=== PATIENT | female | born 1985 | race Caucasian/White ===

== ENCOUNTER 2023-01-11 03:17 | Emergency (ER) | payer BC ==
[2023-01-11 04:20] LABS: Bilirubin Neg (Negative); Blood, Urine Negative (Negative); Clarity Clear (Clear); Glucose, Urine (Dipstick) Normal (Negative); Ketone, Urine Negative (Negative); Leukocyte 25 (Negative); Nitrite Negative (Negative); Protein, Urine (Dipstick) Negative (Neg-Trace); Urobilinogen Normal mg/dL (Less than 2); pH, Urine 6.5 (5.0-9.0)
[2023-01-11 04:29] LABS: Bacteria/HPF None Seen HPF (None Seen); RBC/HPF None Seen HPF (0-3); Squamous Epithelial 0-3 HPF (0-3); WBC/HPF 0-3 HPF (0-3)
[2023-01-11 04:35] LABS: #Eosinphils 0.3 10x3/uL (0.0-0.5); #Monocytes 0.5 10x3/uL (0.0-1.1); %Basophils 0.4 % (0.0-2.0); %Eosinophils 3.5 % (0.0-6.0); %Lymphocytes 25.1 % (18.0-47.0); %Monocytes 5.3 % (0.0-10.0); %Neutrophils 65.3 % (40.0-75.0); Hemoglobin 12.3 g/dL (12.0-15.5); Mean Corpuscular HGB CONC 31.8 g/dL (32.0-36.0); Mean Corpuscular Hemoglobin 27.3 pg (27.0-33.0); Mean Corpuscular Volume 85.8 fl (81.6-98.3); Mean Platelet Volume 11.7 fl (7.4-10.4); Platelet Count 257 10x3/uL (150-450); RBC Distribution Width 15.2 % (11.5-14.5); Red Blood Cell (RBC) Count 4.51 10x6/uL (3.90-5.03); White Blood Cell (WBC) Count 9.2 10x3/uL (3.5-10.5)
[2023-01-11 04:39] LABS: ALT (SGPT) 22 U/L (8-55); AST (SGOT) 15 U/L (5-34); Alkaline Phosphatase 94 U/L (40-110); Anion Gap 15 mmol/L (10-20); BUN (Urea Nitrogen) 7 mg/dL (7.0-18.7); Bilirubin, Total 0.4 mg/dL (0.2-1.2); Calc. Creatinine Clearance 0 mL/min (70-130); Calcium 8.6 mg/dL (7.8-10.44); Carbon Dioxide 23 mmol/L (22-29); Chloride 101 mmol/L (98-107); Estimated GFR 102; Globulin 3.4 g/dL (2.4-3.5); Glucose 141 mg/dL (70-105); Lipase 36 U/L (8-78); Potassium 3.8 mmol/L (3.5-5.1); Protein, Total 7.4 g/dL (6.0-8.3); Sodium 135 mmol/L (136-145)
[2023-01-11] MEDS ORDERED: HYDROcodone/Acetaminophen 5/325 mg Tablet ONE (05:34)
[2023-01-11 05:37] LABS: Platelet Clumps SLIGHT
[2023-01-11 05:38] LABS: Platelet Morphology Comment Appears Adequate
== END 2023-01-11 07:25 | disposition home or self-care (01) ==
LOC: CSHERS 03:17
DX: O99.891 Other specified diseases and conditions complicating pregnancy (principal); R10.9 Unspecified abdominal pain; Z3A.01 Less than 8 weeks gestation of pregnancy
CPT/HCPCS: 76770; 76856; 80053; 81003; 81015; 83690; 84702; 85025

== ENCOUNTER 2023-06-01 14:19 | Day surgery (SDC) | payer BC ==
[2023-06-01] MEDS ORDERED: hydrALAZINE 20 MG/ML VIAL SLOW IVP PRN (15:47)
[2023-06-01] MEDS ORDERED: Acetaminophen 500 MG TAB PO SCH (16:00)
[2023-06-01 16:33] LABS: #Eosinphils 0.1 10x3/uL (0.0-0.5); #Monocytes 0.5 10x3/uL (0.0-1.1); #Neutrophils 7.3 10x3/uL (1.5-8.4); %Basophils 0.2 % (0.0-2.0); %Eosinophils 1.4 % (0.0-6.0); %Lymphocytes 14.4 % (18.0-47.0); %Monocytes 5.4 % (0.0-10.0); %Neutrophils 78.3 % (40.0-75.0); Hematocrit 31.5 % (34.9-44.5); Mean Corpuscular HGB CONC 31.7 g/dL (32.0-36.0); Mean Corpuscular Hemoglobin 27.4 pg (27.0-33.0); Mean Corpuscular Volume 86.3 fl (81.6-98.3); Platelet Count 262 10x3/uL (150-450); RBC Distribution Width 14.4 % (11.5-14.5); Red Blood Cell (RBC) Count 3.65 10x6/uL (3.90-5.03); White Blood Cell (WBC) Count 9.3 10x3/uL (3.5-10.5)
[2023-06-01 16:34] LABS: ALT (SGPT) 11 U/L (8-55); AST (SGOT) 10 U/L (5-34); Albumin 3.3 g/dL (3.5-5.0); Alkaline Phosphatase 95 U/L (40-110); Anion Gap 13 mmol/L (10-20); BUN (Urea Nitrogen) 6 mg/dL (7.0-18.7); Bilirubin, Total 0.2 mg/dL (0.2-1.2); Calc. Creatinine Clearance 0 mL/min (70-130); Calcium 8.6 mg/dL (7.8-10.44); Carbon Dioxide 22 mmol/L (22-29); Chloride 106 mmol/L (98-107); Estimated GFR 116; Globulin 3.3 g/dL (2.4-3.5); Glucose 98 mg/dL (70-105); Potassium 3.7 mmol/L (3.5-5.1); Protein, Total 6.6 g/dL (6.0-8.3); Sodium 137 mmol/L (136-145)
== END 2023-06-01 18:10 | disposition home or self-care (01) ==
LOC: CSHLD/OP 14:19
PROVIDERS: ATTEND Obstetrics & Gynecology
DX: O13.2 Gestational [pregnancy-induced] hypertension without significant proteinuria, second trimester (principal); O99.891 Other specified diseases and conditions complicating pregnancy; R51.9 Headache, unspecified; O99.212 Obesity complicating pregnancy, second trimester; E66.01 Morbid (severe) obesity due to excess calories; O99.282 Endocrine, nutritional and metabolic diseases complicating pregnancy, second trimester; E07.9 Disorder of thyroid, unspecified; O34.42 Maternal care for other abnormalities of cervix, second trimester; N87.9 Dysplasia of cervix uteri, unspecified; O99.112 Other diseases of the blood and blood-forming organs and certain disorders involving the immune mechanism complicating pregnancy, second trimester; O34.211 Maternal care for low transverse scar from previous cesarean delivery; D68.51 Activated protein C resistance; Z90.89 Acquired absence of other organs; Z88.5 Allergy status to narcotic agent; Z91.048 Other nonmedicinal substance allergy status; Z91.018 Allergy to other foods; Z3A.27 27 weeks gestation of pregnancy
CPT/HCPCS: 36415; 76815; 80053; 82570; 84156; 85025

== ENCOUNTER 2023-07-22 16:47 | Inpatient (IN) | payer BC ==
[2023-07-22 18:33] LABS: #Eosinphils 0.1 10x3/uL (0.0-0.5); #Monocytes 0.4 10x3/uL (0.0-1.1); #Neutrophils 7.2 10x3/uL (1.5-8.4); %Basophils 0.1 % (0.0-2.0); %Eosinophils 0.8 % (0.0-6.0); %Lymphocytes 14.5 % (18.0-47.0); %Monocytes 4.5 % (0.0-10.0); %Neutrophils 79.9 % (40.0-75.0); Hematocrit 31.5 % (34.9-44.5); Hemoglobin 10.2 g/dL (12.0-15.5); Mean Corpuscular HGB CONC 32.4 g/dL (32.0-36.0); Mean Corpuscular Hemoglobin 26.7 pg (27.0-33.0); Mean Corpuscular Volume 82.5 fl (81.6-98.3); Mean Platelet Volume 11.2 fl (7.4-10.4); Platelet Count 263 10x3/uL (150-450); RBC Distribution Width 14.5 % (11.5-14.5); Red Blood Cell (RBC) Count 3.82 10x6/uL (3.90-5.03); White Blood Cell (WBC) Count 9.1 10x3/uL (3.5-10.5)
[2023-07-22 18:46] LABS: ALT (SGPT) 30 U/L (8-55); AST (SGOT) 21 U/L (5-34); Alkaline Phosphatase 135 U/L (40-110); Anion Gap 15 mmol/L (10-20); BUN (Urea Nitrogen) 9 mg/dL (7.0-18.7); Bilirubin, Total 0.3 mg/dL (0.2-1.2); Calc. Creatinine Clearance 274 mL/min (70-130); Calcium 8.8 mg/dL (7.8-10.44); Carbon Dioxide 20 mmol/L (22-29); Chloride 105 mmol/L (98-107); Estimated GFR 112; Globulin 3.5 g/dL (2.4-3.5); Glucose 161 mg/dL (70-105); Potassium 3.5 mmol/L (3.5-5.1); Protein, Total 6.5 g/dL (6.0-8.3); Sodium 136 mmol/L (136-145)
[2023-07-22] MEDS ORDERED: Lorazepam 2 MG/ML VIAL SLOW IVP PRN (19:10)
[2023-07-22] MEDS ORDERED: hydrALAZINE 20 MG/ML VIAL SLOW IVP PRN ×2 (19:10→19:23)
[2023-07-22] MEDS ORDERED: Promethazine HCl 25 MG/ML VIAL IM PRN (19:10)
[2023-07-22] MEDS ORDERED: Ondansetron PF 4 MG/2 ML Vial IVP PRN (19:10)
[2023-07-22] MEDS ORDERED: Misoprostol 200 MCG TAB PR PRN (19:10)
[2023-07-22] MEDS ORDERED: Bicitra 30 ML UDCUP PO PRN (19:10)
[2023-07-22] MEDS ORDERED: Famotidine/PF 20 mg/2ml Vial SLOW IVP PRN (19:10)
[2023-07-22] MEDS ORDERED: Carboprost 250 MCG/ML AMP IM PRN (19:10)
[2023-07-22] MEDS ORDERED: Zolpidem Tartrate 5 MG TAB PO PRN (19:10)
[2023-07-22] MEDS ORDERED: Diphenoxylate HCl/Atropine Tablet PO PRN ×2 (19:10)
[2023-07-22] MEDS ORDERED: Lactated Ringer's 1,000 ML IV SCH (19:15)
[2023-07-22] MEDS ORDERED: Oxytocin 30 units/NS 500 ML 500 ML IV SCH (19:15)
[2023-07-22] MEDS ORDERED: Labetalol HCl 100 MG/20 ML VIAL SLOW IVP PRN (19:23)
[2023-07-22] MEDS ORDERED: Betamet Acet/Betamet Na Ph 30 MG/5 ML VIAL IM SCH (19:30)
[2023-07-22 19:33] VITALS: BMI 51.6
[2023-07-22 20:43] LABS: HBSAg Index 0.08 S/CO (0-0.99); Hep B Surf Ag - L&D Non-Reactive S/CO (NonReactive)
[2023-07-22 20:45] LABS: HIV (1/2) Antibody/Antigen Non-Reactive (NonReactive); HIV 1/2 INDEX 0.12 S/CO (<1.00)
[2023-07-22 20:46] LABS: Syphilis Antibody Nonreactive (Nonreactive); Syphilis Antibody Index 0.02 S/CO (<1.00 Non-Reactive)
[2023-07-22 20:58] LABS: ALT (SGPT) 32 U/L (8-55); AST (SGOT) 19 U/L (5-34); Albumin 3.2 g/dL (3.5-5.0); Alkaline Phosphatase 140 U/L (40-110); Anion Gap 13 mmol/L (10-20); BUN (Urea Nitrogen) 9 mg/dL (7.0-18.7); Bilirubin, Total 0.3 mg/dL (0.2-1.2); Calc. Creatinine Clearance 293 mL/min (70-130); Calcium 8.8 mg/dL (7.8-10.44); Carbon Dioxide 22 mmol/L (22-29); Chloride 104 mmol/L (98-107); Estimated GFR 115; Globulin 3.4 g/dL (2.4-3.5); Glucose 100 mg/dL (70-105); Potassium 3.5 mmol/L (3.5-5.1); Protein, Total 6.6 g/dL (6.0-8.3); Sodium 135 mmol/L (136-145)
[2023-07-22] MEDS: Labetalol HCl 200 MG TAB PO SCH (21:03)
[2023-07-22 21:08] LABS: #Eosinphils 0.1 10x3/uL (0.0-0.5); #Monocytes 0.5 10x3/uL (0.0-1.1); #Neutrophils 5.7 10x3/uL (1.5-8.4); %Basophils 0.1 % (0.0-2.0); %Lymphocytes 18.2 % (18.0-47.0); %Monocytes 6.1 % (0.0-10.0); %Neutrophils 74.1 % (40.0-75.0); Hematocrit 32.2 % (34.9-44.5); Hemoglobin 10.5 g/dL (12.0-15.5); Mean Corpuscular HGB CONC 32.6 g/dL (32.0-36.0); Mean Corpuscular Volume 82.8 fl (81.6-98.3); Platelet Count 273 10x3/uL (150-450); RBC Distribution Width 14.5 % (11.5-14.5); Red Blood Cell (RBC) Count 3.89 10x6/uL (3.90-5.03); White Blood Cell (WBC) Count 7.7 10x3/uL (3.5-10.5)
[2023-07-23] MEDS ORDERED: CEFAZOLIN 3 GM in Sodium Chloride 0.9% 100 ML IVPB SCH (05:30)
[2023-07-23] MEDS ORDERED: Oxytocin 10 UNITS/ML VIAL ONE (06:54)
[2023-07-23] MEDS ORDERED: PHENYLEPHRINE ONE (06:54)
[2023-07-23] MEDS ORDERED: Dexamethasone 4 mg/ml Vial ONE (06:54)
[2023-07-23] MEDS ORDERED: PHENYLEPHRINE-NS 100 MCG/ML 10 ML SYRINGE ONE (06:54)
[2023-07-23] MEDS ORDERED: Glycopyrrolate 0.2 MG/ML 5 ML SYRINGE ONE (06:54)
[2023-07-23] MEDS ORDERED: Morphine PF 10 MG/10 ML VIAL ONE (06:54)
[2023-07-23] MEDS ORDERED: Ondansetron PF 4 MG/2 ML Vial ONE (06:54)
[2023-07-23] MEDS ORDERED: ePHEDrine Sulfate 50 MG/10 ML VIAL ONE (06:54)
[2023-07-23] MEDS ORDERED: Ketorolac Tromethamine 30 MG/ML VIAL ONE (06:54)
[2023-07-23] MEDS ORDERED: NS ONE (06:54)
[2023-07-23] MEDS ORDERED: Ketorolac Tromethamine 30 MG/ML VIAL IVP PRN (07:26)
[2023-07-23] MEDS ORDERED: Promethazine HCl 25 MG SUPP PR PRN (07:26)
[2023-07-23] MEDS ORDERED: Moisturizing Cream (Eucerin) 113 GM JAR TOP PRN (07:26)
[2023-07-23] MEDS ORDERED: Meperidine HCl/PF 25 MG/ML VIAL SLOW IVP PRN (07:26)
[2023-07-23] MEDS ORDERED: diphenhydrAMINE 50 MG/ML VIAL IVP PRN (07:26)
[2023-07-23] MEDS ORDERED: Promethazine HCl 25 MG/ML VIAL IM PRN (07:26)
[2023-07-23] MEDS ORDERED: Naloxone HCl 0.4 mg/ml Vial IV PRN (07:26)
[2023-07-23] MEDS ORDERED: fentaNYL 50 mcg/mL 1 mL Vial SLOW IVP PRN (07:26)
[2023-07-23] MEDS ORDERED: Ondansetron PF 4 MG/2 ML Vial IVP PRN ×3 (07:26→13:04)
[2023-07-23] MEDS ORDERED: Naloxone HCl 0.4 mg/ml Vial IVP PRN ×2 (07:26)
[2023-07-23] MEDS ORDERED: Communication Order-Pharmacy FS SCH (07:30)
[2023-07-23] MEDS ORDERED: Ketorolac Tromethamine 30 MG/ML VIAL IVP SCH (07:30)
[2023-07-23 08:25] LABS: RapidComm Collect By CBN; pH (Cord, venous) 7.301 (7.250-7.350)
[2023-07-23 08:45] LABS: RapidComm Collect By CBN
[2023-07-23] MEDS ORDERED: NIFEdipine XL 30 MG ER.TAB PO SCH (09:00)
[2023-07-23] MEDS ORDERED: hydrALAZINE 20 MG/ML VIAL SLOW IVP PRN (13:04)
[2023-07-23] MEDS ORDERED: Misoprostol 200 MCG TAB PR PRN (13:04)
[2023-07-23] MEDS ORDERED: diphenhydrAMINE 25 MG CAP PO PRN (13:04)
[2023-07-23] MEDS ORDERED: Acetaminophen 325 MG TAB PO PRN (13:04)
[2023-07-23] MEDS ORDERED: Simethicone Chewable 80 MG TAB PO PRN (13:04)
[2023-07-23] MEDS ORDERED: Methylergonovine 0.2 MG/ML VIAL IM PRN (13:04)
[2023-07-23] MEDS ORDERED: Boostrix 0.5 ML (Tdap) VIAL (>/=7 yrs of age) IM ONE (13:04)
[2023-07-23] MEDS ORDERED: Lanolin Ointment 7 GM TUBE TOP PRN (13:04)
[2023-07-23 13:42] LABS: Uric Acid 4.7 mg/dL (2.6-6.0)
[2023-07-23] MEDS: Ibuprofen 800 MG TAB PO SCH ×2 (14:50→23:38)
[2023-07-23] MEDS: Labetalol HCl 200 MG TAB PO SCH ×3 (14:50→20:18)
[2023-07-23] MEDS: CEFAZOLIN 1 GM in Sodium Chloride 0.9% 100 ML IVPB SCH ×2 (14:50→23:45)
[2023-07-23] MEDS ORDERED: HYDROcodone/Acetaminophen 5/325 mg Tablet PO PRN (19:30)
[2023-07-23] MEDS: HYDROcodone/Acetaminophen 5/325 mg Tablet PO PRN (20:17)
[2023-07-23] MEDS: Docusate 100 MG CAP PO SCH (20:18)
[2023-07-23] MEDS: Ferrous Sulfate 325 MG TAB PO SCH (21:19)
[2023-07-24] MEDS: HYDROcodone/Acetaminophen 5/325 mg Tablet PO PRN ×5 (01:48→20:13)
[2023-07-24] MEDS: Ibuprofen 800 MG TAB PO SCH ×3 (05:42→21:31)
[2023-07-24] MEDS: CEFAZOLIN 1 GM in Sodium Chloride 0.9% 100 ML IVPB SCH (05:43)
[2023-07-24] MEDS: Levothyroxine Sodium 100 MCG TAB PO SCH (05:43)
[2023-07-24 06:31] LABS: Hematocrit 28.6 % (34.9-44.5); Hemoglobin 9.1 g/dL (12.0-15.5); Mean Corpuscular HGB CONC 31.8 g/dL (32.0-36.0); Mean Corpuscular Hemoglobin 27.2 pg (27.0-33.0); Mean Corpuscular Volume 85.6 fl (81.6-98.3); Mean Platelet Volume 11.7 fl (7.4-10.4); Platelet Count 252 10x3/uL (150-450); RBC Distribution Width 14.7 % (11.5-14.5); Red Blood Cell (RBC) Count 3.34 10x6/uL (3.90-5.03); White Blood Cell (WBC) Count 10.6 10x3/uL (3.5-10.5)
[2023-07-24] MEDS: Aspirin 81 mg Enteric Coated Tablet PO SCH (08:33)
[2023-07-24] MEDS: Prenatal Vitamin 1 TAB PO SCH (08:33)
[2023-07-24] MEDS: Ferrous Sulfate 325 MG TAB PO SCH ×2 (08:34→20:12)
[2023-07-24] MEDS: Docusate 100 MG CAP PO SCH ×2 (08:34→20:13)
[2023-07-24] MEDS: Labetalol HCl 200 MG TAB PO SCH ×3 (08:36→21:31)
[2023-07-24] MEDS ORDERED: Liothyronine Sodium 5 MCG TAB PO SCH (09:00)
[2023-07-25] MEDS: HYDROcodone/Acetaminophen 5/325 mg Tablet PO PRN ×4 (01:08→22:10)
[2023-07-25] MEDS: Levothyroxine Sodium 100 MCG TAB PO SCH (06:13)
[2023-07-25] MEDS: Ibuprofen 800 MG TAB PO SCH ×3 (06:14→22:07)
[2023-07-25] MEDS: Liothyronine Sodium 5 MCG TAB PO SCH (06:15)
[2023-07-25] MEDS: Prenatal Vitamin 1 TAB PO SCH (08:56)
[2023-07-25] MEDS: Aspirin 81 mg Enteric Coated Tablet PO SCH (08:56)
[2023-07-25] MEDS: Ferrous Sulfate 325 MG TAB PO SCH ×2 (08:56→22:07)
[2023-07-25] MEDS: Labetalol HCl 200 MG TAB PO SCH ×3 (08:56→22:07)
[2023-07-25] MEDS: Docusate 100 MG CAP PO SCH ×2 (08:58→22:07)
[2023-07-26] MEDS: Ibuprofen 800 MG TAB PO SCH ×3 (06:10→21:58)
[2023-07-26] MEDS: Levothyroxine Sodium 100 MCG TAB PO SCH (06:11)
[2023-07-26] MEDS: Liothyronine Sodium 5 MCG TAB PO SCH (06:12)
[2023-07-26] MEDS: Ferrous Sulfate 325 MG TAB PO SCH ×2 (10:45→21:57)
[2023-07-26] MEDS: Docusate 100 MG CAP PO SCH ×2 (10:45→21:58)
[2023-07-26] MEDS: Labetalol HCl 200 MG TAB PO SCH ×3 (10:45→21:57)
[2023-07-26] MEDS: HYDROcodone/Acetaminophen 5/325 mg Tablet PO PRN (10:54)
[2023-07-26] MEDS: Prenatal Vitamin 1 TAB PO SCH (10:54)
[2023-07-26] MEDS: Aspirin 81 mg Enteric Coated Tablet PO SCH (10:54)
[2023-07-27] MEDS: Liothyronine Sodium 5 MCG TAB PO SCH (05:32)
[2023-07-27] MEDS: Levothyroxine Sodium 100 MCG TAB PO SCH (05:33)
[2023-07-27] MEDS: Ibuprofen 800 MG TAB PO SCH ×2 (05:40→13:07)
[2023-07-27] MEDS: HYDROcodone/Acetaminophen 5/325 mg Tablet PO PRN (05:40)
[2023-07-27 08:16] VITALS: TEMP 98.3
[2023-07-27] MEDS: Prenatal Vitamin 1 TAB PO SCH (08:35)
[2023-07-27] MEDS: Aspirin 81 mg Enteric Coated Tablet PO SCH (08:35)
[2023-07-27] MEDS: Docusate 100 MG CAP PO SCH (08:35)
[2023-07-27] MEDS: Ferrous Sulfate 325 MG TAB PO SCH (08:35)
[2023-07-27] MEDS: Labetalol HCl 200 MG TAB PO SCH ×2 (08:35→17:24)
[2023-07-27 13:11] VITALS: BP 126/66
== END 2023-07-27 19:15 | disposition home or self-care (01) | DRG 787 ==
LOC: CSHLD/OP 16:47 → CSHLD 22:38 → CSHPED 07-23 12:55 → CSHPP 07-26 19:26
PROVIDERS: ADMIT Obstetrics & Gynecology; ATTEND Obstetrics & Gynecology
PROC: 10D00Z1 Extraction of Products of Conception, Low, Open Approach (ICD-10-PCS; principal; 2023-07-23)
PROC: 4A133R1 Monitoring of Arterial Saturation, Peripheral, Percutaneous Approach (ICD-10-PCS; 2023-07-23)
PROC: 3E033XZ Introduction of Vasopressor into Peripheral Vein, Percutaneous Approach (ICD-10-PCS; 2023-07-23)
DX: O11.4 Pre-existing hypertension with pre-eclampsia, complicating childbirth (principal); O99.12 Other diseases of the blood and blood-forming organs and certain disorders involving the immune mechanism complicating childbirth; O34.211 Maternal care for low transverse scar from previous cesarean delivery; O99.892 Other specified diseases and conditions complicating childbirth; R51.9 Headache, unspecified; O24.429 Gestational diabetes mellitus in childbirth, unspecified control; Z3A.34 34 weeks gestation of pregnancy; Z37.0 Single live birth; O99.214 Obesity complicating childbirth; E66.9 Obesity, unspecified; H53.8 Other visual disturbances; O99.824 Streptococcus B carrier state complicating childbirth; E05.00 Thyrotoxicosis with diffuse goiter without thyrotoxic crisis or storm
CPT/HCPCS: 36415; 36416; 51702; 80053; 82570; 82805; 83615; 84156; 84550; 84560; 85025; 85027; 86780; 86850; 86900; 86901; 87340; 87389; 88307; 99285; J0690; J0702; J1100; J1650; J1885; J2274; J2405; J2590; J3490

== ENCOUNTER 2025-05-11 13:33 | Outpatient (CLI) | payer BC | END 2025-05-11 13:34 | disposition home or self-care (01) | LOC: CSHULT 13:33 | PROVIDERS: ATTEND Family Medicine | DX: R00.2 Palpitations (principal) | CPT/HCPCS: 93306 ==

== ENCOUNTER 2025-05-30 09:12 | Outpatient (CLI) | payer BC | END 2025-05-30 09:13 | disposition home or self-care (01) | LOC: CSHMAMMO 09:12 | PROVIDERS: ATTEND Obstetrics & Gynecology | DX: N64.4 Mastodynia (principal) | CPT/HCPCS: 77066; G0279 ==